=== PATIENT | male | born 1965 ===

== ENCOUNTER 2017-04-10 06:57 | Day surgery (SDC) | payer OTHER | END 2017-04-10 12:15 | disposition home or self-care (01) | LOC: AMB-ENDOS 06:57 | DX: D12.2 Benign neoplasm of ascending colon (principal); D12.3 Benign neoplasm of transverse colon; K52.89 Other specified noninfective gastroenteritis and colitis; Z12.11 Encounter for screening for malignant neoplasm of colon ==

== ENCOUNTER → 2022-06-20 06:00 | Outpatient (CLI) | payer OTHER | END | disposition home or self-care (01) | LOC: LAB 06:00 → ADM 13:15 → EDSTATUS 06-27 13:15 → AMB-ENDOS 06-27 13:15 | PROVIDERS: ATTEND Colon & Rectal Surgery | DX: Z11.59 Encounter for screening for other viral diseases (principal); Z20.828 Contact with and (suspected) exposure to other viral communicable diseases; Z20.822 Contact with and (suspected) exposure to COVID-19 ==